=== PATIENT | female | born 1980 | race Caucasian/White ===

== ENCOUNTER 2020-05-01 11:01 | Emergency (ER) | payer BC ==
[~2020-05-01] VITALS: Ht 170.2 cm; Wt 103.4 kg
[2020-05-01 11:01] VITALS: BP_SYST 139
[2020-05-01] MEDS ORDERED: IBUP-1969 PO (12:02)
[2020-05-01] MEDS ORDERED: HYDR-4272 PO (12:02)
[2020-05-01 12:28] VITALS: BP_SYST 139
== END 2020-05-01 12:28 | disposition home or self-care (01) ==
LOC: SED 11:01
DX: S43.492A Other sprain of left shoulder joint, initial encounter (principal); X58.XXXA Exposure to other specified factors, initial encounter; Y93.89 Activity, other specified; Y92.89 Other specified places as the place of occurrence of the external cause; Y99.8 Other external cause status
CPT/HCPCS: 73030; 99283